=== PATIENT | male | born 1960 | race Caucasian/White ===

== ENCOUNTER 2021-10-29 03:51 | Emergency (ER) | payer OTHER, SELFPAY ==
[2021-10-29 03:55] VITALS: BP 141/78; PULSE 77; RESP 18; TEMP 36.6; O2SAT 98; BMI 32.1
[2021-10-29] MEDS: KETOROLAC 30 MG/ML VIAL IM (04:58)
--- NOTE | 2021-10-29 05:15 | ED_ITS ---
HPI - Extremity Problem General Chief complaint: Extremity Problem,Nontraumatic Stated complaint: pain in left leg feels like its on fire Time Seen by Provider: 10/29/21 04:20 Source: patient Mode of arrival: Ambulatory History of Present Illness HPI Narrative: Patient is a 61-year-old male with history of heterozygote factor 5 Leiden, hypertension presenting today with in numbness in both legs. He says since 2012 after heparin injection in his lateral left thigh he has had some numbness in that area. 10 1 particular area he has had symptoms off and on. However the past week he is started having some symptoms in his right leg. He saw his primary care doctor who did blood work showing that he has mild leukocytosis of 12 and hemoglobin A1c of 5.9 and started him on gabapentin. He says he has taken 600 mg of gabapentin every night for the last 3 nights. Tonight he woke up with excruciating pain in his left leg no one that usually hurts. was quite concerned especially now that he is having some symptoms in his right leg is so he is brought to the emergency department. He has not yet taken anything for pain. 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 He has not had any fever chills no changes in bladder or bowel habits. He has no numbness or tingling in his saddle area. In his left leg it is specifically on the lateral side he can almo st outlined the area be as has been there for so many years. The right leg is relatively asymptomatic at this time. Related Data Home Medications Medication Instructions Recorded Confirmed aspirin 81 mg tablet,delayed 81 mg PO QDAY #0 12/26/12 release Allergies Allergy/AdvReac Type Severity Reaction Status Date / Time No Known Drug Allergies Allergy Verified 10/29/21 04:09 Review of Systems Review of Systems Narrative: GENERAL: Denies chills, fatigue, malaise, fever, sweats, travel HEENT: Denies sinus pain, ear pain, sore throat, difficulty swallowing, neck pain RESPIRATORY: Denies dyspnea, cough, wheezing, hemoptysis, sputum. CARDIOVASCULAR: Denies chest pain, palpitations, orthopnea, edema GASTROINTESTINAL: Denies nausea, vomiting, abdominal pain, diarrhea, constipation, melena. : Denies dysuria, frequency, incontinence, hematuria, urinary retention, flank pain. MUSCULOSKELETAL: Denies weakness, joint pain, or bony pain SKIN: No rash, no erythema, no pruritus NEUROLOGIC: See HPI PSYCHIATRIC: No concerning psychosocial issues. 12 point review of systems is negative except for those stated above and HPI Patient History Social History Smoking Status: Never smoker Smoking Status: Never smoker alcohol intake frequency: 0-2 drinks per day Substance Use Type: does not use Exam Initial Vital Signs Initial Vital Signs: Vital Signs Temperature 97.9 F 10/29/21 03:55 Pulse Rate 77 10/29/21 03:55 Respiratory Rate 18 10/29/21 03:55 Blood Pressure 141/78 H 10/29/21 03:55 Pulse Oximetry 98 10/29/21 03:55 GENERAL: Alert 61-year-old maleand in no acute distress. HEENT: Head atraumatic,EOMI, pupils reactive, face symmetric, moist mucous membranes CARDIOVASCULAR: Regular rate and rhythm without murmurs, rubs or gallops. RESPIRATORY: Breath sounds equal bilaterally, no wheezes rales or rhonchi. ABDOMEN: Soft, nontender. Normoactive bowel sounds all 4 quadrants. No guarding or rebound. EXTREMITIES: Normal range of motion, no clubbing or edema. Neurovascularly intact short distal pedal pulses present bilaterally NEUROLOGICAL: Alert and oriented x4.Normal gait and speech. Decreased sensation did left thigh of good strength SKIN: Warm, dry, no laceration, no petechiae, no rashes or lesions. Course Orders Ordered: Discontinued Medications Ketorolac Tromethamine (Ketorolac 30 Mg/Ml Vial) 30 mg IM NOW ONE Stop: 10/29/21 04:38 Last Admin: 10/29/21 04:58 Dose: 30 mg Documented by: AUPDIKE Lorazepam (Lorazepam 0.5 Mg Tablet) 1 mg PO NOW ONE Stop: 10/29/21 05:22 Vital Signs Vital signs: Vital Signs - 8 hr 10/29/21 03:55 Temperature 97.9 F Pulse Rate 77 Respiratory Rate 18 Blood Pressure 141/78 H Pulse Oximetry 98 MDM - Extremity (Nontraumatic) MDM Narrative Medical decision making narrative: Patient has been having on going left-sided neuropathy for number of years. Is today seems to be an exacerbation of his chronic pain. However his pain seems to be getting more regular and frequent. Today he has no new signs or symptoms to suggest he needs an emergent MRI however I do recommend he have an outpatient MRI. He is overall feeling significantly better after Toradol. Discharge Plan Departure Patient Disposition: Home Clinical Impression: Neuropathy Instructions: DI for Peripheral Neuropathy Activity Restrictions/Additional Instructions: *You have been diagnosed with neuropathy *What to do: At this time I do recommend that he have an outpatient MRI further evaluation of your spinal cord and nerves. *Continue to take medications as directed Ibuprofen 600 mg every 6-8 hours if needed for [id number] pain OR naproxen 500 mg every 12 hours Tylenol 1000 mg every 6 hours for ioxy-uk-iyrfzmun pain *Follow up with your primary care provider in 2-3 days or call [phone] *Return to ER if you should have increasing pain, weakness, fever or any new, worsening or concerning symptoms Prescriptions: No Action aspirin 81 MG tablet,delayed release (DR/EC) 81 mg PO QDAY Qty: 0 0RF Referrals: [facility] [Provider Group]
[2021-10-29 05:41] VITALS: BP 113/64; PULSE 72; RESP 18; TEMP 36.6; O2SAT 98
== END 2021-10-29 05:42 | disposition home or self-care (01) ==
PROVIDERS: Emergency Provider Emergency Medicine
DX: G62.9 Polyneuropathy, unspecified (principal)
CPT/HCPCS: 96372; 99283; J1885

== ENCOUNTER → 2021-11-08 16:44 | Outpatient (CLI) | payer OTHER, SELFPAY ==
--- NOTE | 2021-11-08 16:45 | DI.MRI.S_ITS ---
PROCEDURE: MR LUMBAR SPINE WO CON INDICATIONS: PARESTHESIA OF SKIN TECHNIQUE: Noncontrast sagittal T1 spin echo and T2 fast echo, sagittal STIR, axial T1 and T2 fast spin echo through the lumbar spine. In cases with scoliosis, additional coronal T2 fast spin echo may be performed. COMPARISON: None. FINDINGS: Image quality: Excellent. Alignment and Curvature: There is normal bony alignment. Bone Marrow: Marrow is of normal overall signal. No acute vertebral body compression fractures. Transitional anatomy is present. There is partial lumbarization of the 1st sacral element and hypoplastic ribs associated with the L1 vertebral body Spinal Cord: Conus medullaris terminates at the L1 level. Visualized cord demonstrates normal signal and size. Paraspinous Soft Tissues: No paravertebral masses. T12-L1: Hypoplastic disc space with anterior non segmentation. No central or foraminal stenosis. L1-L2: Normal appearance. L2-L3: Normal appearance. L3-L4: Disc height is preserved. Mild circumferential disc bulge without central or foraminal stenosis. L4-L5: Disc height is preserved. Circumferential disc bulge with hypertrophic facet joints results in mild central stenosis. No right foraminal stenosis. Mild left foraminal stenosis. L5-S1: Disc space narrowing with disc bulge and hypertrophic facet joints noted. No central or right foraminal stenosis. Mild left foraminal stenosis. IMPRESSION: 1. Transitional anatomy. There is partial lumbarization of the 1st sacral element. 2. Mild multilevel degenerative disc disease and arthropathy without significant stenosis Approved by: Elroy Rivers M.D. on 11/08/2021 at 17:46
== END ==
PROVIDERS: Referring Provider Student in an Organized Health Care Education/Training Program; Visit Provider Student in an Organized Health Care Education/Training Program
DX: M51.36 Other intervertebral disc degeneration, lumbar region (principal); M51.37 Other intervertebral disc degeneration, lumbosacral region; M47.816 Spondylosis without myelopathy or radiculopathy, lumbar region; M47.817 Spondylosis without myelopathy or radiculopathy, lumbosacral region; R20.2 Paresthesia of skin
CPT/HCPCS: 72148

== ENCOUNTER → 2022-06-17 19:39 | Outpatient (CLI) | payer OTHER, SELFPAY ==
--- NOTE | 2022-06-17 19:44 | DI.MRI.S_ITS ---
PROCEDURE: MR CERVICAL SPINE WO CON INDICATIONS: Other displaced dens fracture, initial encounter TECHNIQUE: Noncontrast sagittal T1 spin echo and T2 fast spin echo, sagittal STIR, foraminal oblique sagittal T2 fast spin echo, and axial gradient echo or T2 fast spin echo through the cervical spine. COMPARISON: None. FINDINGS: Image quality: Excellent. Alignment and Curvature: There is normal bony alignment. Bone Marrow: Marrow demonstrates normal overall signal. Spinal Cord: Visualized spinal cord has normal size and signal. No cerebellar tonsillar herniation. Paraspinous Soft Tissues: No paravertebral masses. Prevertebral soft tissues are normal in thickness. Discs: Minimal desiccation is present at C5-6. C2-C3: Minimal disc bulge without spinal stenosis. Minimal to mild right foraminal narrowing with uncovertebral hypertrophy. C3-C4: Minimal disc bulge without spinal stenosis. Minimal bilateral foraminal narrowing with uncovertebral hypertrophy. C4-C5: Mild disc bulge with effacement of the anterior thecal sac. Minimal to mild left foraminal narrowing with uncovertebral hypertrophy. C5-C6: Mild disc bulge with effacement of the anterior thecal sac. Minimal left foraminal narrowing. C6-C7: Minimal disc bulge with minimal spinal stenosis. Ckdn-pd-cdiujukk right foraminal narrowing with uncovertebral hypertrophy. C7-T1: No disc bulge or spinal stenosis. Mild right and minimal left foraminal narrowing. IMPRESSION: Multilevel disc bulges. Minimal spinal stenosis C6-7 as well as effacement of the anterior thecal sac at C4-5 and C5-6 secondary to disc bulge. Multilevel foraminal narrowing most notable at C6-7. Dictated by: Priti Iraheta M.D. on 06/20/2022 at 11:16 Approved by: Priti Iraheta M.D. on 06/20/2022 at 11:24
== END ==
PROVIDERS: Referring Provider Family Medicine; Visit Provider Family Medicine
DX: S12.120A Other displaced dens fracture, initial encounter for closed fracture (principal); M48.02 Spinal stenosis, cervical region; M50.321 Other cervical disc degeneration at C4-C5 level
CPT/HCPCS: 72141

== ENCOUNTER → 2022-07-13 07:47 | Outpatient (CLI) | payer OTHER, SELFPAY ==
--- NOTE | 2022-07-13 | DI.MRI.S_ITS ---
PROCEDURE: MR SHOULDER LT WO CON INDICATIONS: INJURY TO LEFT ACROMIOCLAVICULAR JOINT TECHNIQUE: Noncontrast oblique coronal T2 fast spin echo with fat saturation, oblique sagittal T1 spin echo and T2 fast spin echo with fat saturation, axial T1 spin echo and T2 fast spin echo with fat saturation through the shoulder. COMPARISON: [facility], CR, XR SHOULDER 2+ VIEWS LEFT, 07/05/2022, 14:06. FINDINGS: Image quality: Excellent. Rotator cuff: There is moderate supraspinatus and infraspinatus tendinosis, and low-grade bursal surface tearing at the anterior supraspinatus tendon insertion measuring 7 mm in anterior-posterior dimension. The teres minor tendon is intact. There is moderate subscapularis tendinosis. There is grade 2-3 fatty infiltration of the teres minor muscle that is most likely related to chronic denervation changes. No mass is seen along the course of the axillary nerve. Soft tissue edema is seen within the subscapularis and supraspinatus muscles, consistent with low-grade strains. Bones and bursae: Multiple posttraumatic findings are present. A nondisplaced fracture is seen at the base of the acromion process with mild surrounding osseous and soft tissue edema. The clavicle is superiorly displaced relative to the acromion by up to 1.5 cm, greater than 1 shaft width. Intervening soft tissue edema is present with disruption of the acromioclavicular ligaments. The cortical clavicular ligament appears to be completely torn at its midportion. An area of intermediate signal intensity is seen medial to the cortical clavicular ligament that may represent the heterotopic ossifications seen on prior radiographs with mild internal edema. The glenoid and the coracoid process appear to be intact. The proximal humerus is intact. The previously seen left upper rib fracture is not well visualized on this exam. The medial portions of the scapula are not included in the field of view of this exam and cannot be assessed. There is a small amount of subacromial/subdeltoid bursal fluid. No significant glenohumeral effusion. Capsule and soft tissues: There is a small nondisplaced tear of the superior labrum just posterior to the biceps anchor. Proximal biceps long head tendon is intact. There is partial effacement of the normal fat signal in the rotator interval. No definite glenohumeral ligament disruption is seen. IMPRESSION: 1. Superior displacement of the distal clavicle relative to the acromion by greater than one shaft width with disruption of the acromioclavicular and coracoclavicular ligaments, consistent with a Nory type 3 acromioclavicular separation injury. 2. Suspected mildly edematous heterotopic ossifications in the soft tissues medial to the coracoclavicular space. 3. Nondisplaced fracture at the base of the acromion process with surrounding soft tissue and osseous edema. 4. Small nondisplaced tear of the superior labrum. 5. Low-grade muscle strains within the medial subscapularis and supraspinatus muscles. 6. Low-grade partial bursal surface tearing of the supraspinatus tendon at the anterior insertion measuring 7 mm in anterior-posterior dimension. Diffuse moderate rotator cuff tendinosis. 7. Grade 2-3 fatty infiltration of the teres minor muscle is most likely related to chronic denervation changes. No mass is seen along the course of the axillary nerve. Approved by: Jose Barry M.D. on 07/13/2022 at 11:06
== END ==
PROVIDERS: PCP Student in an Organized Health Care Education/Training Program; Referring Provider Orthopaedic Surgery; Visit Provider Orthopaedic Surgery
DX: S46.012A Strain of muscle(s) and tendon(s) of the rotator cuff of left shoulder, initial encounter (principal); S43.102A Unspecified dislocation of left acromioclavicular joint, initial encounter; S42.125A Nondisplaced fracture of acromial process, left shoulder, initial encounter for closed fracture; S43.492A Other sprain of left shoulder joint, initial encounter; X58.XXXA Exposure to other specified factors, initial encounter
CPT/HCPCS: 73221

== ENCOUNTER 2023-03-16 07:23 | Emergency (ER) | payer OTHER, SELFPAY ==
--- NOTE | 2023-03-16 07:24 | ED.GENADULT ---
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 He denies any trauma or injury. He has no chest pain, shortness of breath or cough. He recently flew to [place]. He denies fever or chills. He has no nausea or vomiting. Related Data Home Medications Medication Instructions Recorded Confirmed aspirin 81 mg tablet,delayed 81 mg PO QDAY ##0 12/26/12 release Previous Rx's Medication Instructions Recorded apixaban 5 mg (74 tabs) tablets in See Rx Instructions PO .COMPLEX 03/16/23 a dose pack ([employer] DVT-PE Treat #74 ea 30D Start) Allergies Allergy/AdvReac Type Severity Reaction Status Date / Time No Known Drug Allergies Allergy Verified 03/16/23 07:32 Review of Systems Review of Systems Narrative: GENERAL: Denies chills, fatigue, malaise, fever, sweats. HEENT: Denies sinus pain, ear pain, sore throat, difficulty swallowing, dizziness. RESPIRATORY: Denies dyspnea, cough, wheezing, hemoptysis, sputum. CARDIOVASCULAR: Denies chest pain, palpitations, orthopnea, edema, GASTROINTESTINAL: Denies nausea, vomiting, abdominal pain, diarrhea, constipation, melena. : Denies dysuria, frequency, incontinence, hematuria, urinary retention. MUSCULOSKELETAL: See HPI SKIN: See HPI NEUROLOGIC: Denies weakness, headache, numbness, change in speech, confusion, seizures, incoordination. PSYCHIATRIC: No concerning psychosocial issues. 12 point review of systems is negative except for those stated above Patient History Social History Smoking Status: Never smoker Smoking Status: Never smoker alcohol intake frequency: 0-2 drinks per day Substance Use Type: does not use Exam Narrative Exam Narrative: GEN: AOx3 and in mild distress EYES: Pupils are equal, round, and reactive to light and accommodation. Extraoccular muscles are intact bilaterally. There is no subconjunctival hemorrhage or exudate. CHEST: Lungs are clear to auscultation bilaterally and free of wheezes, rales, or rhonchi. Heart rate is regular rhythm, there are no murmurs, clicks, rubs, or gallops. There is no chest wall tenderness. ABD: Abdomen is soft and nontender. There is no guarding or rebound. Bowel sounds are normal in all 4 quadrants. There is no mass or organomegaly. EXT: Palpable painful lesion left medial calf with overlying erythema, no fluctuance. No lymphangitis. Full painless ROM of all extremities with no loss of sensation or strength. SKIN: Warm, pink, and dry. No erythema or rash Initial Vital Signs Initial Vital Signs: Vital Signs Temperature 98.1 F 03/16/23 07:29 Pulse Rate 79 03/16/23 07:29 Respiratory Rate 16 03/16/23 07:29 Blood Pressure 122/68 03/16/23 07:29 Pulse Oximetry 97 03/16/23 07:29 Oxygen Delivery Method Room Air 03/16/23 07:29 Course Orders Ordered: ED Orders 03/16/23 07:33 US periph venous low extrem lt Stat Vital Signs Vital signs: Vital Signs - 8 hr 03/16/23 07:29 Temperature 98.1 F Pulse Rate 79 Respiratory Rate 16 Blood Pressure 122/68 Pulse Oximetry 97 Oxygen Delivery Method Room Air Medical Decision Making MDM Narrative Medical decision making narrative: [62] year old patient presents with left leg pain, swelling and redness Multiple etiologies for patient's symptoms considered including, but not limited to: [Cellulitis versus DVT versus superficial thrombophlebitis] Prior Charts reviewed in our EMR Primary Historian: patient Imaging reviewed: Superficial clot, measuring greater than 5 cm Patient history and physical exam reassuring. He has no systemic complaints such as chest pain shortness of breath, dizziness, weakness or lightheadedness. Pain and swelling in the absence of trauma or injury but with recent travel and history of clot as well as heterozygous for factor 5 Leiden. Given size of superficial clot and increased risk patient is most appropriately anticoagulated. He is previously been on Eliquis and tolerated it well. Prescription sent to his pharmacy of choice. Return precautions discussed which include chest pain, shortness of breath, passing out or other concerning symptoms as well as importance of close follow-up. Findings and discharge diagnosis discussed with patient/family followed by verbalization of understanding Return precautions discussed with patient/family whom verbalize understanding of diagnosis and plan Discharge Plan Departure Patient Disposition: Home Clinical Impression: Superficial thrombophlebitis Instructions: DI for Superficial Thrombophlebitis Activity Restrictions/Additional Instructions: *You have been diagnosed with [superficial thrombophlebitis left leg. As we discussed given the size and your increased risk of the development of a deep clot current recommendations recommend anticoagulation.] *What to do: *Please continue to take your regular medications as directed. [x ] New medication prescriptions sent to your pharmacy: [[facility]] [ ] New medication written as a paper prescription [ ] No new medications given *Please follow up with your primary care provider in 2-3 days, call for an appointment. Let them know you were seen in the Emergency Department and that we ask that you be seen in follow up. We will electronically transmit a record of today's note if your PCP is in our system *Return to Emergency Department if you should have any new, worsening or concerning symptoms, such as [fever greater than 101 F, shaking chills, worsening pain, persistent vomiting or other bothersome symptoms] Prescriptions: New Eliquis DVT-PE Treat 30D Start 5 mg (74 tabs) tablets,dose pack See Rx Instructions .ROUTE .COMPLEX Qty: 74 0RF Rx Instructions: orally per package directions No Action aspirin 81 MG tablet,delayed release (DR/EC) 81 mg PO QDAY Qty: 0 Referrals: Renae Zimmer MD [Primary Care Provider] - Stand Alone Forms: Patient Portal/API
[2023-03-16 07:29] VITALS: BP 122/68; PULSE 79; RESP 16; TEMP 36.7; O2SAT 97; BMI 30.7
--- NOTE | 2023-03-16 07:33 | DI.US.S_ITS ---
PROCEDURE: US PERIPH VENOUS LOW EXTREM LT INDICATIONS: PAIN; HX DVT TECHNIQUE: Real-time imaging, as well as color and pulse Doppler interrogation, were performed of the lower extremity deep veins from the inguinal ligament to the popliteal fossa. COMPARISON: None. FINDINGS: The common femoral, femoral and popliteal veins are normally compressible, and free of intraluminal thrombus. Color and pulse Doppler demonstrate normal phasic intraluminal flow. There is normal augmentation response to distal compression maneuver. Superficial thrombophlebitis is noted in the medial aspect of the left lower leg. IMPRESSION: 1. No DVT in the left lower extremity. 2. Superficial thrombophlebitis. The result was discussed with Dr. Ordaz. Dictated by: Luz Kumari M.D. on 03/16/2023 at 8:12 Approved by: Luz Kumari M.D. on 03/16/2023 at 8:17
[2023-03-16 08:39] VITALS: BP 133/74; PULSE 77; RESP 18; O2SAT 99
== END 2023-03-16 08:40 | disposition home or self-care (01) ==
PROVIDERS: Emergency Provider Emergency Medicine; PCP Student in an Organized Health Care Education/Training Program
DX: I80.02 Phlebitis and thrombophlebitis of superficial vessels of left lower extremity (principal)
CPT/HCPCS: 93971; 99281; 99283

== ENCOUNTER 2023-05-07 09:19 | Emergency (ER) | payer OTHER, SELFPAY ==
[2023-05-07 09:23] VITALS: BP 145/79; PULSE 74; RESP 16; TEMP 36.8; O2SAT 99; BMI 30.7
--- NOTE | 2023-05-07 09:28 | DI.US.S_ITS ---
PROCEDURE: US PERIP VENOUS LOW EXTREM LT INDICATIONS: LEFT CALF PAIN TECHNIQUE: Real-time imaging, as well as color and pulse Doppler interrogation, were performed of the lower extremity deep veins from the inguinal ligament to the popliteal fossa, with documentation of the visualized calf veins. COMPARISON: [facility], , [facility] VENOUS LOW EXTREM LT, 03/16/2023, 7:46. FINDINGS: The common femoral, femoral, popliteal, and the visualized calf veins are normally compressible, and free of intraluminal thrombus. Color and pulse Doppler demonstrate normal phasic intraluminal flow. There is normal augmentation response to distal compression maneuver. Within the popliteal fossa there is a 3.7 x 1.6 x 2.2 cm cyst likely reflecting Beth cyst. IMPRESSION: No finding of lower extremity deep vein thrombosis. Dictated by: Gasper Zeng M.D. on 05/07/2023 at 9:27 Approved by: Gasper Zeng M.D. on 05/07/2023 at 9:28
--- NOTE | 2023-05-07 10:36 | ED.EXTPRO ---
HPI - Extremity Problem General Chief complaint: Extremity Problem,Nontraumatic Stated complaint: per pt poss blood clot Time Seen by Provider: 05/07/23 10:36 History of Present Illness HPI Narrative: Patient 63-year-old male with factor 5 Leiden deficiency in the presenting today with left leg calf pain that started yesterday. He reports that he previously had DVTs after significant traumatic accident and being in the ICU a year ago. He was later diagnosed with a superficial thrombophlebitis not on anticoagulation. Denies any recent travel swelling redness. Complains of pain specifically left calf 1 particular area no significant swelling. Related Data Home Medications Medication Instructions Recorded Confirmed losartan 100 mg tablet 100 mg PO DAILY 04/26/23 04/26/23 simvastatin 20 mg tablet 20 mg PO DAILY 04/26/23 04/26/23 Previous Rx's Medication Instructions Recorded sodium,potassium,mag sulfates 17.5 See Rx Instructions PO .COMPLEX 04/26/23 gram-3.13 gram-1.6 gram oral soln #354 mL (Suprep Bowel Prep Kit) Allergies Allergy/AdvReac Type Severity Reaction Status Date / Time No Known Drug Allergies Allergy Verified 04/26/23 10:31 Review of Systems Review of Systems ROS Unobtainable: All systems reviewed & are unremarkable except as noted in HPI and below Patient History Medical History Factor V Leiden Hx of pilonidal cyst Family History Mother Hypertension Stroke Father Cancer Social History Smoking Status: Never smoker Smoking Status: Never smoker alcohol intake frequency: 0-2 drinks per day Substance Use Type: does not use Exam Initial Vital Signs Initial Vital Signs: Vital Signs Temperature 98.2 F 05/07/23 09:23 Pulse Rate 74 05/07/23 09:23 Respiratory Rate 16 05/07/23 09:23 Blood Pressure 145/79 H 05/07/23 09:23 Pulse Oximetry 99 05/07/23 09:23 Oxygen Delivery Method Room Air 05/07/23 09:23 GENERAL: Well-appearing, well-nourished and in no acute distress. CARDIOVASCULAR: peripheral pulses in tact, cap refill <2 sec RESPIRATORY: No respiratory distress, speaks in full sentences without difficulty EXTREMITIES: Normal range of motion, no clubbing or edema. Neurovascularly intact Left leg no calf swelling no redness tender pinpoint in 1 area NEUROLOGICAL: Cranial nerves II through XII grossly intact. Normal gait and speech. SKIN: Warm, dry, no petechiae, no rashes or lesions. Course Orders Ordered: ED Orders 05/07/23 09:28 US periph venous low extrem lt Stat Vital Signs Vital signs: Vital Signs - 8 hr 05/07/23 09:23 Temperature 98.2 F Pulse Rate 74 Respiratory Rate 16 Blood Pressure 145/79 H Pulse Oximetry 99 Oxygen Delivery Method Room Air MDM - Extremity (Nontraumatic) MDM Narrative Medical decision making narrative: Patient is history of DVT associated with hospitalization and ICU stay later had a superficial thrombophlebitis presents today with left calf pain. Ultrasound is negative however it was not a whole bag ultrasound. Patient does have risk factors. Discussed wearing compression socks and repeating ultrasound. At this time we discussed anticoagulation however at this time I feel repeating ultrasound and supportive care is appropriate Discharge Plan Departure Patient Disposition: Home Clinical Impression: Pain of left calf Instructions: Deep Vein Thrombosis Activity Restrictions/Additional Instructions: *You have been diagnosed with left calf pain *What to do: At this time your ultrasound is negative however I strongly encourage wearing compression socks and having a repeat ultrasound at the end of this week *Continue to take medications as directed *Follow up with your primary care provider in 2-3 days or call [phone] Call your PCP tomorrow for outpatient ultrasound *Return to ER if you should have increasing pain swelling chest pain shortness of breath redness or any new, worsening or concerning symptoms Prescriptions: No Action sodium,potassium,mag sulfates [Suprep Bowel Prep Kit] 17.5-3.13-1.6 gram recon soln See Rx Instructions PO .COMPLEX Qty: 354 0RF Rx Instructions: take as directed by Physician losartan 100 mg tablet 100 mg PO DAILY simvastatin 20 mg tablet 20 mg PO DAILY Referrals: Renae Zimmer MD [Primary Care Provider] - Stand Alone Forms: Patient Portal/API
[2023-05-07 10:40] VITALS: BP 128/76; PULSE 70; RESP 14; O2SAT 100
[2023-05-07 10:42] VITALS: PULSE 70
== END 2023-05-07 11:13 | disposition home or self-care (01) ==
PROVIDERS: Emergency Provider Emergency Medicine; PCP Student in an Organized Health Care Education/Training Program
DX: M79.662 Pain in left lower leg (principal); Z86.718 Personal history of other venous thrombosis and embolism
CPT/HCPCS: 93971; 99282; 99283

== ENCOUNTER 2023-05-23 07:45 | Day surgery (SDC) | payer OTHER, SELFPAY ==
[2023-05-16 14:28] VITALS: BMI 31.1
[2023-05-23] VITALS (8 sets, daily range): BP systolic 111–140; BP diastolic 74–88; PULSE 69–85; RESP 12–16; TEMP 36.1–36.6; O2SAT 95–98; BMI 31.1
--- NOTE | 2023-05-23 | PATH_ITS ---
[facility] Accession Number: [id number] No. of containers..01 Tissue . 01 Material submitted: . hip - LEFT HIP MASS . 01 Diagnosis: Left Hip Mass, Excision: Fibrous tissue lined cystic structure with reactive changes. Additional mature fibroadipose tissue. See comment. MRV 05/31/2023 1246 Local . 01 Comment: The histologic features are compatible with seroma. Clinical correlation is recommended. . 01 Electronically signed: . Tina Gillis MD, Pathologist NPI- [id number] . 01 Gross description: . The specimen is received in formalin labeled with the patient's name, , and left hip mass, and consists of two fragments of tissue. The first is an unoriented ellipse of skin measuring 10.0 x 3.5 cm and excised to a depth of 4.4 cm. On the deep surface is a smooth, pang area consistent with seroma lining measuring 4.6 x 1.1 cm. The margin is inked blue. Sectioning reveals a yellow, lobulated, unremarkable cut surface. The second soft tissue fragment is pang and membranous consistent with possible disrupted seroma cavity with attached yellow adipose tissue that measures 8.3 x 6.5 x 1.7 cm and is inked green. Sectioning reveals a variable yellow and soft to pang and rubbery cut surface. Photogrammetric Engineer sections are submitted as follows: A1-A2: Photogrammetric Engineer skin ellipse. A3: Photogrammetric Engineer presumed seroma cavity. ([id number]) /BRIANNE 05/25/2023 0306 Local . 01 Pathologist provided ICD-10: M96.843 . 01 CPT . 475130 Specimen Comment: A courtesy copy of this report has been sent to [phone] Performed at: 01 [facility] [address] [facility], [place], [place] [id number] MD Johnnie Fisher MD Phone: [phone]
[2023-05-23] MEDS: LACTATED RINGERS 1,000 ML 100 ML IV (08:05)
--- NOTE | 2023-05-23 08:35 | PM.PREOP ---
Pre-operative Note COVID-19 COVID-19 status: Not tested Interval Note History & Physical reviewed/Exam performed by Physician: Yes Changes to H&P: No ASA Class (for procedural sedation): II
--- NOTE | 2023-05-23 09:20 | SUR.OPER ---
Lateral on a mackay bag, head on pillow, gel axillary roll in place, bottom leg bent with gel pad under knee to foot, upper leg straight and supported with pillows. Upper arm supported by pillows and secured over bottom arm to padded arm board. Safety belt at hip, tape over blanket lower legs.
[2023-05-23] MEDS: BUPIVACAINE 0.5% (PF) 30 ML, EPINEPHrine 0.15 MG INJ (09:29)
--- NOTE | 2023-05-23 10:13 | P.OP_ITS ---
Operative Date/Time/Diagnoses Date of procedure: 05/23/23 Time of procedure: 10:13 Pre-op diagnosis: Left hip soft tissue mass Post-op diagnosis: other (Left hip seroma) Procedure & Clinicians Procedure: Excision of soft tissue mass and drainage of seroma of the left hip Same procedure as scheduled: Yes Surgeon: Jay Burns Customer Sales Specialist: Ricardo Stone Operative Notes Procedure in detail: The patient was brought to the operating room and general anesthesia was induced with LMA. The patient was positioned in the right lateral decubitus position with the left hip up. The skin was prepped and draped in the usual fashion and a time-out was performed. Made an elliptical incision of skin and incised down through the subcutaneous adipose tissue. We encountered a seroma and all the fluid was suctioned out. We unroofed the superficial portion of the seroma ca psule and excised some subcutaneous fat along with the anterior portion of the capsule. The deep portion of the seroma capsule was adherent to muscle fascia and periosteum. We scored the deep portion of the seroma cavity with cautery and curette. Bleeders were cauterized. Additional local was injected into deep aspect of the seroma cavity. We then placed a 15 round Sherman drain into the seroma cavity and brought it out through an anterior stab incision. We then closed the wound in layers using multiple interrupted 3-0 Vicryl sutures and a running 4-0 Monocryl subcuticular closure. Steri-Strips and gauze were used to dress the incision. A binder was placed for compression. EBL: 20 mL Ricardo LEAL provided assistance with exposure, retraction and closure of incisions. Post-operative Condition: stable Disposition: PACU
[2023-05-23] MEDS: HYDROCODONE/ACET 5/325 TABLET 1 TAB PO (11:01)
== END 2023-05-23 11:40 | disposition home or self-care (01) ==
PROVIDERS: PCP Student in an Organized Health Care Education/Training Program; Referring Provider Surgery; Visit Provider Surgery
PROC: (CPT 27043; principal; 2023-05-23 09:00)
DX: T79.2XXA Traumatic secondary and recurrent hemorrhage and seroma, initial encounter (principal); V86.55XS Driver of 3- or 4- wheeled all-terrain vehicle (ATV) injured in nontraffic accident, sequela
CPT/HCPCS: 27043; J0171; J0330; J1170; J2405; J3010

== ENCOUNTER 2023-06-22 07:09 | Day surgery (SDC) | payer OTHER, SELFPAY ==
[2023-06-22 07:24] VITALS: BP 135/86; PULSE 87; RESP 17; TEMP 36.4; O2SAT 96; BMI 27.8
[2023-06-22] MEDS: LACTATED RINGERS 1,000 ML 42 ML IV (07:39)
--- NOTE | 2023-06-22 08:27 | PM.HP.1 ---
History of Present Illness History of Present Illness Date Patient Seen: 06/22/23 Time Patient Seen: 08:27 Chief complaint: Colonoscopy Narrative: Alo is here for his colonoscopy. His last colonoscopy was about 10 years ago and some polyps were removed. He has recovered well from his recent left hip surgery. 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 History of rib fracture History of spleen injury Hx of pilonidal cyst Surgical History History of chest tube placement History of cholecystectomy (~2014) History of rotator cuff surgery (10/08/20) History of shoulder surgery (~02/26/22) History of surgical removal of pilonidal cyst (~1984) Family History Mother Hypertension Stroke Father Cancer Social History household members: spouse Smoking Status: Never smoker Meds Home Medications and Allergies Home Medications Medication Instructions Recorded Confirmed Type losartan 100 mg tablet 100 mg PO DAILY 04/26/23 06/22/23 History simvastatin 20 mg tablet 20 mg PO DAILY 04/26/23 06/22/23 History melatonin 5 mg tablet 5 mg PO BEDTIME 05/16/23 06/22/23 History Allergies Allergy/AdvReac Type Severity Reaction Status Date / Time No Known Drug Allergies Allergy Verified 06/22/23 07:19 Exam Vital Signs (past 8 hours): - 06/22/23 07:24 Temperature 97.6 F Pulse Rate 87 Respiratory Rate 17 Blood Pressure 135/86 Pulse Oximetry 96 Oxygen Delivery Method Room Air Oxygen Delivery Method Room Air Const General: healthy appearing and No acute distress Resp Effort & Inspection: normal respiratory effort Assessment & Plan Assessment and plan (1) Colon cancer screening: Status: Acute (2) History of colon polyps: Status: Acute Plan We reviewed the risks and benefits of colonoscopy for history of polyps and he would like to proceed.
[2023-06-22 09:12] VITALS: BP 118/72; PULSE 79; RESP 18; TEMP 36.1; O2SAT 97
--- NOTE | 2023-06-22 09:13 | PM.OP.COLON ---
Operative Date/Time/Diagnoses Date of procedure: 06/22/23 Time of procedure: 09:13 Pre-op diagnosis: Colon cancer screening Post-op diagnosis: same Procedure & Clinicians Study performed: Colonoscopy Same procedure as scheduled: Yes Surgeon: Jay Burns Procedure Notes Procedure in detail: Surgeon: Jay Burns MD Anesthesia: Elizabeth Westbrook DO Procedure: The patient was brought to the endoscopy suite, placed in left lateral decubitus position. The patient was connected to monitoring devices. A time-out was performed. Sedation was administered. Once the patient was adequately sedated, a digital rectal exam was performed and was normal. The scope was then inserted and advanced to the cecum where the appendiceal orifice was identified and photographed. The scope was then slowly withdrawn over greater than 6 minutes. The mucosa was thoroughly inspected. No abnormalities were found. The scope was retroflexed in the rectum. No other abnormalities were seen. The scope was straightened and removed. The patient was awakened and brought to recovery. Scope withdrawal time: 12 minutes Sedation time: 23 minutes EBL: 0 Findings: Normal colon Post-procedure Recommendations: Colonoscopy in 10 years Disposition: PACU
[2023-06-22 09:20] VITALS: BP 118/79; PULSE 72; RESP 16; TEMP 36.1; O2SAT 72
[2023-06-22 09:25] VITALS: BP 116/71; PULSE 73; RESP 17; O2SAT 99
[2023-06-22 09:30] VITALS: BP 116/80; PULSE 71; RESP 16; O2SAT 99
== END 2023-06-22 09:35 | disposition home or self-care (01) ==
PROVIDERS: PCP Student in an Organized Health Care Education/Training Program; Referring Provider Surgery; Visit Provider Surgery
PROC: 0DJD8ZZ Inspection of Lower Intestinal Tract, Via Natural or Artificial Opening Endoscopic (ICD-10-PCS; CPT 45378; principal; 2023-06-22 08:15)
DX: Z12.11 Encounter for screening for malignant neoplasm of colon (principal)
CPT/HCPCS: 45378; J2704

== ENCOUNTER → 2024-11-18 14:38 | Outpatient (CLI) | payer OTHER, SELFPAY ==
[2024-11-18 15:36] LABS: Influenza A - CEPHEID Flu A POSITIVE (NEGATIVE); Influenza B - CEPHEID Flu B NEGATIVE (NEGATIVE); Respiratory Syncytial Virus Negative (Negative)
[2024-11-18 16:18] LABS: COVID-19 CEPHEID 4-PLEX PCR Negative (Negative)
== END ==
PROVIDERS: PCP Student in an Organized Health Care Education/Training Program; Visit Provider Nurse Practitioner Family
DX: R05.1 Acute cough (principal)
CPT/HCPCS: 0241U

== ENCOUNTER → 2024-11-18 14:43 | Outpatient (CLI) | payer OTHER, SELFPAY ==
--- NOTE | 2024-11-18 14:44 | DI.RAD.S_ITS ---
PROCEDURE: XR CHEST 2V INDICATIONS: cough TECHNIQUE: 2 views of the chest were acquired. COMPARISON: None. FINDINGS: Surgical changes and devices: None. Lungs and pleura: Lungs are clear. No pleural effusions or pneumothorax. Mediastinum: Mediastinal contours are normal. Heart size is normal. Bones and chest wall: No suspicious bony abnormalities. Multiple chronic appearing healed left posterior rib fractures are noted. Soft tissues appear unremarkable. IMPRESSION: No acute cardiopulmonary abnormality is seen. Dictated by: Quentin Holguin M.D. on 11/18/2024 at 21:40 Approved by: Quentin Holguin M.D. on 11/18/2024 at 21:41
== END ==
PROVIDERS: PCP Family Medicine; Referring Provider Nurse Practitioner Family; Visit Provider Nurse Practitioner Family
DX: R05.1 Acute cough (principal)
CPT/HCPCS: 0241U; 71046

== ENCOUNTER 2025-02-23 14:23 | Emergency (ER) | payer OTHER, SELFPAY ==
[2025-02-23 14:27] VITALS: PULSE 75; RESP 17; TEMP 36.7; O2SAT 96; BMI 30.2
--- NOTE | 2025-02-23 16:25 | ED.BACK ---
HPI - Back Pain/Injury General Chief Complaint: Back Pain/Injury Stated Complaint: L Side Pain Time Seen by Provider: 02/23/25 16:24 Source: patient History of Present Illness HPI Narrative: 64 y/o m with history of htn, hld, presenting with left sided back/flank pain. Patient states he was working on the computer on the evening prior when he developed pain in his lef chest/abdominal wall. States that the pain was worse this morning. He denies associated shortness of breath. No known trauma to the area. Patient has had no other abdominal pain, no urinary symptoms, fevers, chills, n/v/d. He has not noted any skin changes to the area. No personal history of shingles. Related Data Home Medications Medication Instructions Recorded Confirmed losartan 100 mg tablet 100 mg PO DAILY 04/26/23 11/18/24 simvastatin 20 mg tablet 20 mg PO DAILY 04/26/23 11/18/24 melatonin 5 mg tablet 5 mg PO BEDTIME 05/16/23 11/18/24 Previous Rx's Medication Instructions Recorded benzonatate 200 mg capsule 200 mg PO BID PRN cough #28 caps 11/18/24 Allergies Allergy/AdvReac Type Severity Reaction Status Date / Time No Known Drug Allergies Allergy Verified 02/23/25 14:27 Review of Systems Review of Systems ROS Unobtainable: All systems reviewed & are unremarkable except as noted in HPI and below Patient History Medical History Factor V Leiden Hemothorax History of hypertension 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 History of rib fracture History of spleen injury Hx of pilonidal cyst Surgical History History of chest tube placement History of cholecystectomy (~2014) History of rotator cuff surgery (10/08/20) History of shoulder surgery (~02/26/22) History of surgical removal of pilonidal cyst (~1984) Family History Mother Hypertension Stroke Father Cancer Social History household members: spouse Smoking Status: Never smoker Smoking Status: Never smoker alcohol intake frequency: 0-2 drinks per day Exam Narrative Exam Narrative: Focal area of tenderness over the left lateral chest without CVA tenderness, abdominal pain Initial Vital Signs Initial Vital Signs: Vital Signs Temperature 98.1 F 02/23/25 14:27 Pulse Rate 75 02/23/25 14:27 Respiratory Rate 17 02/23/25 14:27 Pulse Oximetry 96 02/23/25 14:27 Oxygen Delivery Method Room Air 02/23/25 14:27 Const General: cooperative HENMT Head: normocephalic and atraumatic Face and sinus: face symmetric Eyes Conjunctivae: conjunctivae normal Chest Chest: normal inspection of the chest Resp Effort & Inspection: normal respiratory effort, able to speak in complete sentences and no respiratory distress Auscultation: clear to auscultation bilaterally Cardio Rate: regular rate Rhythm: regular rhythm GI Palpation: soft and No tender Auscultation: normal bowel sounds Back/Spine/Pelvis Back: No CVA tenderness Skin General: no rashes or lesions noted Extrem General: full ROM Psych Appearance: well kempt Mental Status: mental status grossly normal Course Orders Ordered: ED Orders 02/23/25 16:49 XR ribs LT min 3V w CXR1V Stat Vital Signs Vital signs: Vital Signs - 8 hr 02/23/25 14:27 Temperature 98.1 F Pulse Rate 75 Respiratory Rate 17 Pulse Oximetry 96 Oxygen Delivery Method Room Air MDM - Back Pain/Injury Medical Records Attestation: I reviewed the patient's medical records. Lab Data Labs: Urine Dip Bedside Urine Glucose Negative Bedside Urine Bilirubin - Negative Bedside Urine Ketone - Negative Urine Specific [place] 1.015 Bedside Urine Occult Blood - Negative Bedside Urine pH 6.0 Bedside Urine Protein - Negative Bedside Urine Urobilinogen - Negative Bedside Urine Nitrite - Negative Bedside Urine Leukocytes - Negative Esterase MDM Narrative Medical decision making narrative: History and exam as above. Pt presenting with focal tenderness over the lateral chest/abdominal wall most consistent with musculoskeletal pathology such as zoster, costochondritis, musculoskeletal strain. No worsening with exertion or association with shortness of breath to suggest cardiac pathology, similarly without pleuritic pain, tachycardia, hypoxia to suggest PE, no cough fever to suggest underlying pneumonia or effusion. Differential considered: Includes but not limited to costochondritis, pleural effusion, pneumonia, zoster, seroma, musculoskeletal strain Imaging studies independently reviewed: xray of the ribs without evidence of acute injury Re-evaluations: discussed pain management options with lidocaine patches, tylenol, ibuprofen. Similarly discussed potential of progressive process such as early zoster and counseled regarding appropriate next steps and follow up plan. Remains in stable condition. Discharged. Discharge Plan Departure Patient Disposition: Home Clinical Impression: Abdominal pain, left lateral Activity Restrictions/Additional Instructions: You were seen in the emergency department for your left-sided flank/abdominal pain. Evaluation here including examination and x-ray imaging was overall reassuring and did not demonstrate any evidence of an acute process that would require intervention or admission. It is likely that this is musculoskeletal in nature we recommend lidocaine patches and ibuprofen for pain management. As we discussed, it is also possible that this is early shingles, if you develop a rash, it is important that you are seen for re-evaluation and medication initiation. Please follow-up closely with your primary care doctor in the next 5-7 days. If you develop worsening abdominal pain, urinary symptoms, rash, chest pain or shortness of breath, other symptoms that are concerning to you, please return to the emergency department for further evaluation. Prescriptions: No Action benzonatate 200 mg capsule 200 mg PO BID PRN (Reason: cough) Qty: 28 0RF losartan 100 mg tablet 100 mg PO DAILY simvastatin 20 mg tablet 20 mg PO DAILY melatonin 5 mg Tablet 5 mg PO BEDTIME Referrals: Rodney Oglesby MD [Primary Care Provider] - Stand Alone Forms: Patient Portal/API/Survey
--- NOTE | 2025-02-23 16:49 | DI.RAD.S_ITS ---
PROCEDURE: XR RIBS LT MIN 3V W CXR1V INDICATIONS: left chest wall pain TECHNIQUE: 4 views of the ribs were acquired, along with a single view chest. COMPARISON: None. FINDINGS: Surgical changes and devices: None. Bones and chest wall: Suggestion of old healed left posterior 3rd through 8th rib fractures are seen. No suspicious bony lesions. Overlying soft tissues appear unremarkable. Lungs and pleura: No pleural effusions or pneumothorax. Lungs appear clear. Mediastinum: Mediastinal contours appear normal. Heart size is normal. IMPRESSION: Likely old healed left posterior 3rd through 8th rib fractures. No definite acute displaced left rib fractures. No pneumothorax. Dictated by: Rishabh Nevarez M.D. on 02/23/2025 at 17:23 Approved by: Rishabh Nevarez M.D. on 02/23/2025 at 17:24
[2025-02-23 17:48] VITALS: BP 124/74; PULSE 66; RESP 16; O2SAT 97
== END 2025-02-23 17:49 | disposition home or self-care (01) ==
PROVIDERS: Emergency Provider Student in an Organized Health Care Education/Training Program; PCP Family Medicine
DX: R10.9 Unspecified abdominal pain (principal); R07.9 Chest pain, unspecified
CPT/HCPCS: 71101; 81003; 99281; 99283

== ENCOUNTER 2025-09-14 12:17 | Emergency (ER) | payer OTHER, MEDICARE, SELFPAY ==
--- OUTSIDE RECORDS SUMMARY | 2025-09-14 12:19 | XMS_ITS | Encounter Summary ---
Author Organization [facility] Address [address] [place] [address] Care Team Providers Care Rehabilitation Program Manager Name Role Phone Rodney Oglesby MD Primary Care Provider [phone] Reason for Referral * Injectables (Routine) - Closed Specialty Diagnoses / Procedures Referred By Contac t Referred To Contact Orthopedic Surgery / Orthopaedic Surgery Diagnoses Incomplete tear of right rotator cuff, unspecified whether traumatic Tin Hall MD [address] [place] [phone] Phone: tel: fax: [facility] [address] [place] [phone] Phone: tel: fax: Referral ID Status Reason Start Date Expiration Date Visits Re quested Visits Authorized [id number] Closed 09/24/2024 03/15/2025 1 1 [facility] Encounter Details Date Type Department Care Team (Late st Contact Info) Description 08/16/2024 Orders Only [facility] [address] [place] [phone] Tin Hall MD [address] [place] [phone] Incomplete tear of right rotator cuff, unspecified whether traumatic (Primary Dx) Social History Tobacco Use Types Packs/Day Years Used Date Smoking Tobacco: Never Smokeless Tobacco: Never Comments:18 yr passive smoke exposure in addition to Alcohol Use Standard Drinks/Week Comments Yes 1 (1 standard drink = 0.6 oz pur e alcohol) Infrequent Sex and Gender Information Value Date Recorded Sex Assigned at Not on file Legal Sex Male 4:24 PM PDT Gender Identity Not on file Sexual Orientation Straight 08/23/2023 8: 02 PM PST documented as of this encounter Plan of Treatment Scheduled Referrals Name Type Priority Associated Diagnoses Order Schedule [facility] referral for Medication Authorizations Outpatient Referral Routine Incomplete tear of right rotator cuff, unspecified whether traumatic Ordered: 08/16/2024 documented as of this encounter Visit Diagnoses Diagnosis Incomplete tear of right rotator cuff, unspecified whether traumatic- Primary documented in this encounter Care Teams Rehabilitation Program Manager Relationship Specialty Start Date End Date Rodney Oglesby MD [address] [place] [address] PCP - General Family Medicine 09/11/25 documented as of this encounter
[2025-09-14 12:43] VITALS: BP 154/83; PULSE 83; RESP 16; TEMP 36.7; O2SAT 99; BMI 32.1
--- NOTE | 2025-09-14 12:50 | DI.US.S_ITS ---
PROCEDURE: US PERIP VENOUS LOW EXTREM RT INDICATIONS: Pain, rule out DVT, history of DVT TECHNIQUE: Real-time imaging, as well as color and pulse Doppler interrogation, were performed of the lower extremity deep veins from the inguinal ligament to the popliteal fossa, with documentation of the visualized calf veins. COMPARISON: [facility], [facility] VENOUS LOW EXTREM LT, 05/07/2023, 10:09. FINDINGS: Nonocclusive occlusive thrombus in the mid to distal right superficial femoral vein extends into the popliteal, posterior tibial and peroneal veins . IMPRESSION: Nonocclusive thrombus in the right mid to distal superficial femoral vein extends into the popliteal , posterior tibial, and peroneal veins of the right lower extremity. Communication: The above findings were discussed with the ordering clinician, Dr. Freire, by Dr. Duarte via telephone on 09/14/2025 at 2:12 pm PST. Dictated by: Darvin Duarte M.D. on 09/14/2025 at 14:07 Approved by: Darvin Duarte M.D. on 09/14/2025 at 14:13
--- NOTE | 2025-09-14 14:29 | ED.EXTPRO ---
HPI - Extremity Problem General Chief complaint: Extremity Problem,Nontraumatic Stated complaint: possible blood clot rt calf Time Seen by Provider: 09/14/25 12:44 Source: patient Mode of arrival: Ambulatory History of Present Illness HPI Narrative: 65-year-old gentleman with hx of hypertension, dyslipidemia, hx of factor V with previous hx of dvt not on anticoagulation, [place] on [place]04[place]25 presents with increasing R lower leg pain over the past few days. Pt denies chest pain, sob, arteaga, abd pain, trauma to the area. Other than what is stated 14 pt ROS is negative. Related Data Home Medications ?Medication ?Instructions ?Recorded ?Confirmed losartan 100 mg tablet 100 mg PO DAILY 04/26/23 11/18/24 simvastatin 20 mg tablet 20 mg PO DAILY 04/26/23 11/18/24 melatonin 5 mg tablet 5 mg PO BEDTIME 05/16/23 11/18/24 Previous Rx's ?Medication ?Instructions ?Recorded benzonatate 200 mg capsule 200 mg PO BID PRN cough #28 caps 11/18/24 apixaban 5 mg (74 tabs) tablets in 5 mg PO BID #74 ea 09/14/25 a dose pack (Eliquis DVT-PE Treat 30D Start) apixaban 5 mg tablet (Eliquis) 5 mg PO BID #10 tabs 09/14/25 apixaban 5 mg tablet (Eliquis) 5 mg PO BID #60 tabs 09/14/25 Allergies Allergy/AdvReac Type Severity Reaction Status Date / Time No Known Drug Allergies Allergy Verified 02/23/25 14:27 Review of Systems Review of Systems ROS Unobtainable: All systems reviewed & are unremarkable except as noted in HPI and below Patient History Medical History Factor V Leiden Hemothorax History of hypertension 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 Well-developed patient, in mild distress. HEAD: Atraumatic. Normocephalic. EYES: Pupils equal round and reactive. Extraocular motions intact. No scleral icterus. No injection or drainage. NECK: Trachea midline. Non tender CARDIOVASCULAR: Regular rate and rhythm without murmurs, gallops, or rubs. RESPIRATORY: Clear to auscultation. Breath sounds equal bilaterally. No wheezes, rales, or rhonchi. GASTROINTESTINAL: Abdomen soft, non-tender, nondistended. EXTREMITIES: R prox mid calf TTP and >calf girth slightly compared to LLE. motor/sensory intact +2DP +2PT cap refill<2secs BACK: Nontender without deformity or crepitance. No flank tenderness. NEURO: AOx3. SKIN: No rash or erythema of visible areas Initial Vital Signs Initial Vital Signs: Vital Signs Temperature 98.1 F 09/14/25 12:43 Pulse Rate 83 09/14/25 12:43 Respiratory Rate 16 09/14/25 12:43 Blood Pressure 154/83 H 09/14/25 12:43 Pulse Oximetry 99 09/14/25 12:43 Oxygen Delivery Method Room Air 09/14/25 12:43 Course Orders Ordered: Discontinued Medications Apixaban (Apixaban 5 Mg Tablet) 5 mg PO NOW ONE Stop: 09/14/25 14:16 Last Admin: 09/14/25 14:47 Dose: 5 mg Documented By: TC Vital Signs Vital signs: Vital Signs - 8 hr 09/14/25 12:43 Temperature 98.1 F Pulse Rate 83 Respiratory Rate 16 Blood Pressure 154/83 H Pulse Oximetry 99 Oxygen Delivery Method Room Air MDM - Extremity (Nontraumatic) MDM Narrative Medical decision making narrative: All lab work, vital signs, assistant executive housekeeper note, medication list, previous ER visits and all imaging studies all reviewed. Differential dx dvt, superificial thrombophlelbitis, cramp. Patient given Eliquis here be discharged on Eliquis. With positive ultrasound showing nonocclusive thrombus in the right mid to distal superficial femoral veins extending to the popliteal posterior tibial and peroneal veins of the right lower extremity. Discharge Plan Departure Patient Disposition: Home Clinical Impression: Deep vein thrombosis of lower extremity Instructions: DI for Deep Vein Thrombosis Activity Restrictions/Additional Instructions: Return with new or worsening symptoms. Take medicine as directed. Follow up with PCP this week. Prescriptions: New Eliquis DVT-PE Treat 30D Start 5 mg (74 tabs) tablets,dose pack 5 mg PO BID Qty: 74 0RF Eliquis 5 mg tablet 5 mg PO BID Qty: 60 0RF Eliquis 5 mg tablet 5 mg PO BID Qty: 10 0RF No Action benzonatate 200 mg capsule 200 mg PO BID PRN (Reason: cough) Qty: 28 0RF losartan 100 mg tablet 100 mg PO DAILY simvastatin 20 mg tablet 20 mg PO DAILY melatonin 5 mg Tablet 5 mg PO BEDTIME Referrals: Rodney Oglesby MD [Primary Care Provider, Family Practice] Stand Alone Forms: Patient Portal/API
[2025-09-14] MEDS: APIXABAN 5 MG TABLET PO (14:47)
[2025-09-14 14:53] VITALS: BP 164/90; PULSE 81; RESP 16; O2SAT 97
== END 2025-09-14 14:54 | disposition home or self-care (01) ==
PROVIDERS: Emergency Provider Family Medicine; PCP Family Medicine
DX: I82.411 Acute embolism and thrombosis of right femoral vein (principal); I82.431 Acute embolism and thrombosis of right popliteal vein; I82.441 Acute embolism and thrombosis of right tibial vein; I82.451 Acute embolism and thrombosis of right peroneal vein; D68.51 Activated protein C resistance; Z86.718 Personal history of other venous thrombosis and embolism
CPT/HCPCS: 93971; 99283